=== PATIENT | male | born 1990 | race Caucasian/White ===

== ENCOUNTER 2024-05-25 21:07 | Emergency (ER) | payer OTHER ==
[~2024-05-25] VITALS: Ht 190.5 cm; Wt 76.3 kg
[2024-05-25 21:14] VITALS: TEMP 98.6
[2024-05-25] MEDS ORDERED: PREDNISONE20 MG PO (23:05)
[2024-05-25 23:18] VITALS: PULSE 73; RESP 16; O2SAT 100
== END 2024-05-25 23:18 | disposition home or self-care (01) ==
LOC: ER 21:11
DX: R06.02 Shortness of breath (principal); T50.995A Adverse effect of other drugs, medicaments and biological substances, initial encounter
CPT/HCPCS: 99283